=== PATIENT | female | born 1990 | race Caucasian/White ===

== ENCOUNTER 2017-02-18 20:10 | Emergency (ER) | payer MEDICAID ==
[~2017-02-18] VITALS: Ht 167.6 cm; Wt 77.0 kg
[2017-02-18 20:41] VITALS: BP 110/74
== END 2017-02-19 | disposition left against medical advice (07) ==
LOC: ER 20:20
DX: R10.9 Unspecified abdominal pain (principal); Z53.21 Procedure and treatment not carried out due to patient leaving prior to being seen by health care provider